=== PATIENT | female | born 1990 | race Caucasian/White ===

== ENCOUNTER → 2017-05-08 | Outpatient (CLI) | payer MEDICAID ==
--- NOTE | 2017-05-08 13:47 | US ---
EXAMINATION TYPE: US kidneys/renal and bladder DATE OF EXAM: 05/08/2017 COMPARISON: NONE CLINICAL HISTORY: R10.9 abdominal pain. Right flank pain, patient is 30 weeks EXAM MEASUREMENTS: Right Kidney: 17.3 x 7.7 x 6.8 cm Left Kidney: 9.1 x 4.0 x 4.4 cm Right Kidney: multiple cystic areas visualized Left Kidney: No hydronephrosis or masses seen Bladder: wnl Bilateral Jets seen: No, only left jet visualized There is abnormal appearance to right kidney which appears enlarged with multiple peripheral cystic s tructures. Centrally there is no prominent cystic structure or hydronephrosis. 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 Clinical correlation and correlation with old outside ul trasounds advised. If there is no such history, cystic neoplasm cannot be excluded and further workup would be advised.
== END | disposition home or self-care (01) ==
LOC: MERGE 12:53 → RADUSWWP 12:53
PROVIDERS: ATTEND Obstetrics & Gynecology
DX: O99.89 Other specified diseases and conditions complicating pregnancy, childbirth and the puerperium (principal); R10.9 Unspecified abdominal pain; Z3A.30 30 weeks gestation of pregnancy
CPT/HCPCS: 76770

== ENCOUNTER 2017-05-24 10:31 | Outpatient (CLI) | payer OTHER ==
[2017-05-24 10:59] LABS: Appearance,Urine Clear (Clear); Bacteria,Urine Rare /hpf; Bilirubin,Urine Negative (Negative); Blood,Urine Negative (Negative); Color,Urine Yellow; Glucose,Urine (UA) Negative (Negative); Ketones,Urine 3+ (Negative); Leukocyte Esterase,Urine Small (Negative); Mucus,Urine Rare /hpf; Nitrite,Urine Negative (Negative); Protein,Urine 1+ (Negative); Specific Gravity,Urine 1.014 (1.001-1.035); Squamous Epithelial Cell,Urine 2 /hpf (0-4); WBC,Urine 4 /hpf (0-5)
[2017-05-24] MEDS: LACTATED RINGERS 1,000 ML IV SCH ×4 (11:00→14:39)
[2017-05-24 11:30] VITALS: BP 133/86; PULSE 95; RESP 16; TEMP 97.9
[2017-05-24 12:32] LABS: HCT 34.2 % (34.0-46.0); HGB 11.7 gm/dL (11.4-16.0); MCH 29.3 pg (25.0-35.0); MCHC 34.2 g/dL (31.0-37.0); MCV 85.7 fL (80.0-100.0); Mean Platelet Volume 8.2; Platelet Count 344 k/uL (150-450); Poikilocytosis Slight; RBC 3.99 m/uL (3.80-5.40); RDW 12.5 % (11.5-15.5); WBC 10.6 k/uL (3.8-10.6)
[2017-05-24 12:47] LABS: Large Platelets Present; Monocytes # (M) 0.42 k/uL (0-1.0); Neutrophils # (M) 8.48 k/uL (1.3-7.7); Neutrophils % (M) 80 %; Nucleated Red Blood Cells 0 /100 WBC (0-0); Total Cells Counted 100
[2017-05-24] MEDS: TERBUTALINE 1 MG/ML VIAL SQ PRN ×3 (12:48→15:22)
--- NOTE | 2017-06-17 16:50 | P.MSEPDOC ---
Presenting Problems - Arrival Data Date of Arrival on Unit: 05/24/17 Time of Arrival on Unit: 10:33 Mode of Transport: Ambulatory - Complaint OB-Reason for Admission/Chief Complaint: Possible Onset of Labor Comment: ctx 2 min apart since 0200 Medical History - Information : 1 Para: 0 Term: 0 : 0 Abortions: Spontaneous or Elective: 0 Number of Living Children: 0 - Gestational Age Gestational Age by SHAINA (wks/days): 32 Weeks and 1 Days - History Complications: GDM Comment: 2nd time to triage for labor this prgnancy Review of Systems - Review of Systems Constitutional: No problems Breast: No problems ENT: No problems Cardiovascular: No problems Respiratory: No problems Gastrointestinal: No problems Genitourinary: No problems Musculoskeletal: No problems Neurological: No problems Skin: No problems Vital Signs - Temperature Temperature: 97.9 F Temperature Source: Temporal Artery Scan - Pulse Right Brachial Pulse Rate: 95 Pulse Assessment Method: Automatic Cuff - Respirations Respiratory Rate: 16 Oxygen Delivery Method: Room Air O2 Sat by Pulse Oximetry: 96 - Blood Pressure Right Arm Blood Pressure: 133/86 Blood Pressure Mean: 101 Blood Pressure Source: Automatic Cuff Medical Screen Scoring (Pre) - Cervical Exam Dilation: 1-3 cm = 1 Membranes: Intact - Uterine Contractions Frequency: < 36 weeks = 6 Duration: > 40 seconds = 2 Intensity: N/A - Maternal Vital Signs Maternal Temperature: N/A Maternal Blood Pressure: N/A Signs of Preeclampsia: N/A Maternal Respirations: N/A - Pain Assessment Pain Location and Character: Abdomen Pain Scale Used: Numeric (1 - 10) Pain Intensity: 4 Pain Description: *Acute, Tightness Pain Frequency: Intermittent Pain Duration: 8 Pain Duration Units: Hours Pain Behavior: None Exhibited Pain Aggravating Factors: Contractions - Maternal Trauma Maternal Trauma: N/A - Assessment Baseline FHR: 130 Heart Rate - NICHD Category: Category I (Normal) = 0 NST: Reactive Position: N/A - Total Score Total Score (Pre): 9 - Level of Risk Level of Risk: Medium (6-9) Physician Notification (Pre) - Physician Notified Physician Notified Date: 05/24/17 Physician Notified Time: 11:00 Physician/Practitioner Notifed:: Joseph Spoke With: Joseph New Order Received: Yes - Notification Comment Comment: iv fluids, ffn ua Medical Screen Scoring (Post) - Cervical Exam Dilation: 1-3 cm = 1 Membranes: Intact - Uterine Contractions Frequency: > 5 minutes apart = 1 Duration: N/A Intensity: N/A - Assessment Heart Rate - NICHD Category: Category I (Normal) = 0 NST: Reactive - Total Score Total Score (Post): 2 - Post Treatment Level of Risk Post Treatment Level of Risk: Low (0-5) Physician Notification (Post) - Physician Notified Physician Notified Date: 05/24/17 Physician Notified Time: 16:30 Spoke With: Joseph New Order Received: Yes (discharge with terb script, follow up appt 5 days, rest , no work) Disposition - Disposition OB Disposition: Discharge to home, Written follow up instructions reviewed Discharge Date: 05/24/17 Discharge Time: 16:37 I agree with the RN Medical Screening Exam: Yes Risk & Benefit of care provided described in d/c instruction: Yes Diagnosis: FALSE LABOR BEFORE 37 COMPLETED WEEKS OF GEST, THIRD TRI
== END 2017-05-24 16:37 | disposition home or self-care (01) ==
LOC: FBPOP 10:31
PROVIDERS: ATTEND Obstetrics & Gynecology
DX: O47.03 False labor before 37 completed weeks of gestation, third trimester (principal); Z3A.32 32 weeks gestation of pregnancy
CPT/HCPCS: 59025; 99214; 96360; 96361; 96372; 82731; 85025; 81001; J3105